=== PATIENT | female | born 1950 | race Caucasian/White ===

== ENCOUNTER 2020-12-14 10:56 | Outpatient (CLI) | payer MEDICARE ==
[2020-12-14 12:48] LABS: Hemoglobin 11.5 g/dL (12.0-15.5); Mean Corpuscular HGB CONC 32.3 g/dL (32.0-36.0); Mean Corpuscular Hemoglobin 29.1 pg (27.0-33.0); Mean Corpuscular Volume 90.1 fl (81.6-98.3); Mean Platelet Volume 10.7 fl (7.4-10.4); Platelet Count 240 10x3/uL (150-450); RBC Distribution Width 13.1 % (11.5-14.5); Red Blood Cell (RBC) Count 3.95 10x6/uL (3.90-5.03); White Blood Cell (WBC) Count 9.1 10x3/uL (3.5-10.5)
[2020-12-15 02:35] LABS: SARS-CoV-2 PCR by NAA Not Detected (NotDetected)
== END 2020-12-14 10:57 | disposition home or self-care (01) ==
LOC: CSHLAB 10:56
PROVIDERS: ATTEND Podiatrist
DX: Z01.818 Encounter for other preprocedural examination (principal); Z20.822 Contact with and (suspected) exposure to COVID-19; T84.223A Displacement of internal fixation device of bones of foot and toes, initial encounter
CPT/HCPCS: 85027; 87635; 93005; 93010; U0003; U0005

== ENCOUNTER 2022-07-13 06:23 | Inpatient (IN) | payer MEDICARE ==
[2022-07-13] MEDS ORDERED: Ondansetron PF 4 MG/2 ML Vial ONE ×2 (07:24→11:05)
[2022-07-13 07:33] LABS: #Monocytes 1.4 10x3/uL (0.0-1.1); #Neutrophils 17.3 10x3/uL (1.5-8.4); %Basophils 0.1 % (0.0-2.0); %Eosinophils 0.1 % (0.0-6.0); %Lymphocytes 3.7 % (18.0-47.0); %Neutrophils 88.6 % (40.0-75.0); Hemoglobin 12.7 g/dL (12.0-15.5); Mean Corpuscular HGB CONC 36.4 g/dL (32.0-36.0); Mean Corpuscular Hemoglobin 29.7 pg (27.0-33.0); Mean Corpuscular Volume 81.7 fl (81.6-98.3); Mean Platelet Volume 9.4 fl (7.4-10.4); Platelet Count 271 10x3/uL (150-450); RBC Distribution Width 12.2 % (11.5-14.5); Red Blood Cell (RBC) Count 4.27 10x6/uL (3.90-5.03); White Blood Cell (WBC) Count 19.6 10x3/uL (3.5-10.5)
[2022-07-13 07:43] LABS: ALT (SGPT) 35 U/L (8-55); AST (SGOT) 34 U/L (5-34); Albumin 4.3 g/dL (3.4-4.8); Alkaline Phosphatase 77 U/L (40-110); Anion Gap 18 mmol/L (10-20); BUN (Urea Nitrogen) 11 mg/dL (9.8-20.1); Bilirubin, Total 0.9 mg/dL (0.2-1.2); Calc. Creatinine Clearance 0 mL/min (70-130); Calcium 9.4 mg/dL (7.8-10.44); Carbon Dioxide 25 mmol/L (23-31); Chloride 77 mmol/L (98-107); Estimated GFR 88; Globulin 2.7 g/dL (2.4-3.5); Glucose 179 mg/dL (83-110); Lipase 11 U/L (8-78); Potassium 3.5 mmol/L (3.5-5.1)
[2022-07-13 08:10] LABS: Sodium 116 mmol/L (136-145)
[2022-07-13 10:28] LABS: Bilirubin Neg (Negative); Blood, Urine 25 (Negative); Clarity Clear (Clear); Glucose, Urine (Dipstick) 100 mg/dL (Negative); Ketone, Urine 150 mg/dL (Negative); Leukocyte 25 (Negative); Nitrite Negative (Negative); Protein, Urine (Dipstick) 30 mg/dl (Neg-Trace); Specific Gravity, Urine 1.015 (1.005-1.030); Urobilinogen Normal mg/dL (Less than 2)
[2022-07-13 10:43] LABS: RBC/HPF 0-3 HPF (0-3)
[2022-07-13 10:44] LABS: Bacteria/HPF None Seen HPF (None Seen); Transitional Epithelial 0-3 HPF (None Seen)
[2022-07-13] MEDS ORDERED: Iopamidol 300 61% 100 ML VIAL FS ONE (11:30)
[2022-07-13] MEDS ORDERED: cefTRIAXone\\ROCEPHIN 2 GM VIAL ONE (12:16)
[2022-07-13] MEDS ORDERED: Sodium Chloride 0.9% 1,000 ML IV SCH (12:30)
[2022-07-13 13:03] LABS: Magnesium 1.5 mg/dL (1.6-2.6)
[2022-07-13 13:06] LABS: SARS-CoV-2 NAA Rapid Test Not Detected (NotDetected)
[2022-07-13] MEDS ORDERED: Magnesium 2 GM/50 ML(in water) 2 GM in Premix Bag 1 BAG IVPB SCH (13:15)
[2022-07-13 13:24] LABS: Anion Gap 14 mmol/L (10-20); BUN (Urea Nitrogen) 9 mg/dL (9.8-20.1); Calc. Creatinine Clearance 0 mL/min (70-130); Calcium 8.9 mg/dL (7.8-10.44); Carbon Dioxide 24 mmol/L (23-31); Chloride 83 mmol/L (98-107); Estimated GFR 93; Glucose 136 mg/dL (83-110); Phosphorus 2.2 mg/dL (2.3-4.7); Potassium 3.6 mmol/L (3.5-5.1)
[2022-07-13 13:30] LABS: Sodium 117 mmol/L (136-145)
[2022-07-13] MEDS ORDERED: methylPREDNISolone Sod Succ 40 MG VIAL IVP SCH (15:00)
[2022-07-13] MEDS ORDERED: Ondansetron HCl/PF 4 MG in Sodium Chloride 0.9% 50 ML IVPB SCH (15:30)
[2022-07-13] MEDS ORDERED: Ketorolac Tromethamine 30 MG/ML VIAL IVP SCH (15:30)
[2022-07-13 15:53] LABS: Hemoglobin 11.9 g/dL (12.0-15.5)
[2022-07-13] MEDS ORDERED: FLU VACC QS2022-23(65YR UP)/PF 240 MCG/0.7 ML SYRINGE IM ONE (16:00)
[2022-07-13] MEDS ORDERED: Ondansetron PF 4 MG/2 ML Vial IVP SCH (16:00)
[2022-07-13] MEDS: Sodium Chloride 0.9% 1,000 ML IV SCH (16:04)
[2022-07-13 16:06] LABS: Anion Gap 18 mmol/L (10-20); BUN (Urea Nitrogen) 8 mg/dL (9.8-20.1); Calc. Creatinine Clearance 92 mL/min (70-130); Calcium 8.8 mg/dL (7.8-10.44); Carbon Dioxide 21 mmol/L (23-31); Chloride 84 mmol/L (98-107); Estimated GFR 93; Glucose 126 mg/dL (83-110); Potassium 3.5 mmol/L (3.5-5.1)
[2022-07-13 16:21] LABS: Sodium 119 mmol/L (136-145)
[2022-07-13 16:56] LABS: Hemoglobin A1c 5.8 % (4.0-6.0)
[2022-07-13] MEDS: chlordiazePOXIDE/Clidinium Bromide Capsule PO SCH ×2 (17:32→22:49)
[2022-07-13] MEDS: Mometasone/Formoterol 60 PUFF AER INH SCH (18:30)
[2022-07-13] MEDS ORDERED: Potassium Chloride 20 MEQ TAB PO SCH ×2 (19:00→23:00)
[2022-07-13] MEDS ORDERED: Electrolyte Replacement Protocol 1 EACH FS SCH (19:15)
[2022-07-13] MEDS ORDERED: Promethazine HCl 12.5 MG in Sodium Chloride 0.9% 50 ML IVPB PRN (19:37)
[2022-07-13] MEDS: Ondansetron PF 4 MG/2 ML Vial IVP PRN (19:46)
[2022-07-13 20:23] LABS: #Monocytes 0.4 10x3/uL (0.0-1.1); #Neutrophils 15.3 10x3/uL (1.5-8.4); %Basophils 0.1 % (0.0-2.0); %Eosinophils 0.1 % (0.0-6.0); %Lymphocytes 2.7 % (18.0-47.0); %Monocytes 2.3 % (0.0-10.0); %Neutrophils 94.1 % (40.0-75.0); Hemoglobin 11.7 g/dL (12.0-15.5); Mean Corpuscular HGB CONC 36.7 g/dL (32.0-36.0); Mean Corpuscular Hemoglobin 30.1 pg (27.0-33.0); Mean Platelet Volume 9.1 fl (7.4-10.4); Platelet Count 264 10x3/uL (150-450); RBC Distribution Width 12.4 % (11.5-14.5); Red Blood Cell (RBC) Count 3.89 10x6/uL (3.90-5.03); White Blood Cell (WBC) Count 16.3 10x3/uL (3.5-10.5)
[2022-07-13 20:26] LABS: Anion Gap 16 mmol/L (10-20); BUN (Urea Nitrogen) 10 mg/dL (9.8-20.1); Calc. Creatinine Clearance 92 mL/min (70-130); Calcium 8.4 mg/dL (7.8-10.44); Carbon Dioxide 23 mmol/L (23-31); Chloride 86 mmol/L (98-107); Estimated GFR 93; Glucose 153 mg/dL (83-110); Sodium 122 mmol/L (136-145)
[2022-07-13 20:38] LABS: Potassium 2.7 mmol/L (3.5-5.1)
[2022-07-13] MEDS ORDERED: Famotidine 20 MG TAB PO SCH (21:00)
[2022-07-13 21:59] LABS: Hemoglobin 11.9 g/dL (12.0-15.5); Mean Corpuscular Hemoglobin 30.2 pg (27.0-33.0); Mean Corpuscular Volume 81.7 fl (81.6-98.3); Mean Platelet Volume 9.1 fl (7.4-10.4); Platelet Count 285 10x3/uL (150-450); RBC Distribution Width 12.4 % (11.5-14.5); Red Blood Cell (RBC) Count 3.94 10x6/uL (3.90-5.03); White Blood Cell (WBC) Count 17.2 10x3/uL (3.5-10.5)
[2022-07-13] MEDS: Pantoprazole 40 MG VIAL IVP SCH (22:11)
[2022-07-13] MEDS: Potassium Chloride 20 MEQ in Premix Bag 1 BAG IVPB SCH (22:13)
[2022-07-13] MEDS: Doxycycline 100 MG in Sodium Chloride 0.9% 100 ML IVPB SCH (22:47)
[2022-07-13] MEDS: buPROPion 75 MG TAB PO SCH (22:49)
[2022-07-13] MEDS: PHOS-NAK 1 PKT PACK PO SCH (22:49)
[2022-07-13] MEDS: Oxybutynin 5 MG TAB PO SCH (22:50)
[2022-07-13 23:36] LABS: Legionella Urinary Ag Negative (Negative)
[2022-07-14] MEDS ORDERED: Lorazepam 2 MG/ML VIAL SLOW IVP SCH (00:30)
[2022-07-14] MEDS ORDERED: Metoclopramide HCl 10 MG/2 ML VIAL IVP SCH (00:30)
[2022-07-14] MEDS ORDERED: diphenhydrAMINE 50 MG/ML VIAL IVP SCH (00:30)
[2022-07-14] MEDS: Piperacillin/Tazobactam 3.375 GM in Sodium Chloride 0.9% 100 ML IVPB SCH ×3 (00:46→17:02)
[2022-07-14] MEDS: PHOS-NAK 1 PKT PACK PO SCH (00:49)
[2022-07-14] MEDS: Potassium Chloride 20 MEQ in Premix Bag 1 BAG IVPB SCH ×4 (00:49→12:16)
[2022-07-14 01:07] LABS: Anion Gap 17 mmol/L (10-20); BUN (Urea Nitrogen) 12 mg/dL (9.8-20.1); Calc. Creatinine Clearance 88 mL/min (70-130); Calcium 8.5 mg/dL (7.8-10.44); Carbon Dioxide 23 mmol/L (23-31); Chloride 87 mmol/L (98-107); Estimated GFR 92; Glucose 167 mg/dL (83-110); Sodium 124 mmol/L (136-145)
[2022-07-14 01:08] LABS: Potassium 2.9 mmol/L (3.5-5.1)
[2022-07-14] MEDS: Sodium Chloride 0.9% 1,000 ML IV SCH (01:19)
[2022-07-14 04:46] LABS: ALT (SGPT) 29 U/L (8-55); AST (SGOT) 31 U/L (5-34); Albumin 3.6 g/dL (3.4-4.8); Alkaline Phosphatase 63 U/L (40-110); Anion Gap 17 mmol/L (10-20); BUN (Urea Nitrogen) 13 mg/dL (9.8-20.1); Bilirubin, Total 0.6 mg/dL (0.2-1.2); Calc. Creatinine Clearance 84 mL/min (70-130); Calcium 8.4 mg/dL (7.8-10.44); Carbon Dioxide 22 mmol/L (23-31); Chloride 90 mmol/L (98-107); Estimated GFR 91; Globulin 2.2 g/dL (2.4-3.5); Glucose 152 mg/dL (83-110); Potassium 3.5 mmol/L (3.5-5.1); Protein, Total 5.8 g/dL (5.8-8.1); Sodium 125 mmol/L (136-145)
[2022-07-14 04:51] LABS: #Monocytes 1.2 10x3/uL (0.0-1.1); #Neutrophils 16.9 10x3/uL (1.5-8.4); %Basophils 0.1 % (0.0-2.0); %Lymphocytes 3.8 % (18.0-47.0); %Monocytes 6.5 % (0.0-10.0); Hemoglobin 11.5 g/dL (12.0-15.5); Mean Corpuscular HGB CONC 36.9 g/dL (32.0-36.0); Mean Corpuscular Hemoglobin 30.3 pg (27.0-33.0); Mean Corpuscular Volume 82.3 fl (81.6-98.3); Mean Platelet Volume 9.5 fl (7.4-10.4); Platelet Count 283 10x3/uL (150-450); RBC Distribution Width 12.7 % (11.5-14.5); Red Blood Cell (RBC) Count 3.79 10x6/uL (3.90-5.03)
[2022-07-14] MEDS: Doxycycline 100 MG in Sodium Chloride 0.9% 100 ML IVPB SCH ×2 (08:08→20:51)
[2022-07-14] MEDS: Pantoprazole 40 MG VIAL IVP SCH ×2 (08:08→20:52)
[2022-07-14 08:21] LABS: Anion Gap 14 mmol/L (10-20); BUN (Urea Nitrogen) 14 mg/dL (9.8-20.1); Calc. Creatinine Clearance 87 mL/min (70-130); Calcium 8.1 mg/dL (7.8-10.44); Carbon Dioxide 22 mmol/L (23-31); Chloride 93 mmol/L (98-107); Estimated GFR 92; Glucose 122 mg/dL (83-110); Potassium 3.5 mmol/L (3.5-5.1); Sodium 125 mmol/L (136-145)
[2022-07-14] MEDS ORDERED: methylPREDNISolone Sod Succ 40 MG VIAL IVP SCH (09:00)
[2022-07-14] MEDS ORDERED: Enoxaparin Sodium 40 MG/0.4 ML SYRINGE SC SCH (09:00)
[2022-07-14] MEDS: chlordiazePOXIDE/Clidinium Bromide Capsule PO SCH (09:01)
[2022-07-14] MEDS: buPROPion 75 MG TAB PO SCH ×2 (09:01→20:54)
[2022-07-14] MEDS: Oxybutynin 5 MG TAB PO SCH ×2 (09:01→20:51)
[2022-07-14] MEDS ORDERED: Potassium Chloride 20 MEQ TAB PO SCH (10:00)
[2022-07-14] MEDS: Mometasone/Formoterol 60 PUFF AER INH SCH ×2 (11:15→21:40)
[2022-07-14] MEDS ORDERED: cefTRIAXone\\ROCEPHIN 1 GM in Sodium Chloride 0.9% 100 ML IVPB SCH (12:00)
[2022-07-14] MEDS ORDERED: Acetaminophen 325 MG TAB PO PRN (16:09)
[2022-07-14 19:04] LABS: Hemoglobin 10.9 g/dL (12.0-15.5)
[2022-07-14 19:16] LABS: Anion Gap 13 mmol/L (10-20); BUN (Urea Nitrogen) 12 mg/dL (9.8-20.1); Calc. Creatinine Clearance 86 mL/min (70-130); Calcium 8.4 mg/dL (7.8-10.44); Carbon Dioxide 23 mmol/L (23-31); Chloride 92 mmol/L (98-107); Estimated GFR 92; Glucose 164 mg/dL (83-110); Potassium 3.9 mmol/L (3.5-5.1); Sodium 124 mmol/L (136-145)
[2022-07-15] MEDS: Piperacillin/Tazobactam 3.375 GM in Sodium Chloride 0.9% 100 ML IVPB SCH ×3 (01:13→19:21)
[2022-07-15 05:03] LABS: Anion Gap 12 mmol/L (10-20); BUN (Urea Nitrogen) 9 mg/dL (9.8-20.1); Calc. Creatinine Clearance 98 mL/min (70-130); Carbon Dioxide 23 mmol/L (23-31); Chloride 92 mmol/L (98-107); Sodium 123 mmol/L (136-145)
[2022-07-15 05:04] LABS: Calcium 8.4 mg/dL (7.8-10.44); Estimated GFR 95; Glucose 117 mg/dL (83-110); Magnesium 1.7 mg/dL (1.6-2.6)
[2022-07-15] MEDS ORDERED: Magnesium 2 GM/50 ML(in water) 2 GM in Premix Bag 1 BAG IVPB SCH (05:30)
[2022-07-15] MEDS: Mometasone/Formoterol 60 PUFF AER INH SCH ×2 (07:44→19:50)
[2022-07-15] MEDS ORDERED: Guaifenesin DM 100-10/5 ML UDCUP PO PRN (08:02)
[2022-07-15] MEDS: Doxycycline 100 MG in Sodium Chloride 0.9% 100 ML IVPB SCH ×2 (09:17→21:33)
[2022-07-15] MEDS: Sodium Chloride 0.9% 1,000 ML IV SCH ×2 (09:19→21:34)
[2022-07-15] MEDS: Oxybutynin 5 MG TAB PO SCH ×2 (09:20→21:27)
[2022-07-15] MEDS: Benzonatate 100 MG CAP PO SCH ×3 (09:20→21:27)
[2022-07-15] MEDS: buPROPion 75 MG TAB PO SCH ×2 (09:20→21:25)
[2022-07-15] MEDS: Famotidine 20 MG TAB PO SCH ×2 (09:20→21:25)
[2022-07-15] MEDS: Ondansetron PF 4 MG/2 ML Vial IVP PRN (12:56)
[2022-07-15 13:50] LABS: Anion Gap 13 mmol/L (10-20); BUN (Urea Nitrogen) 9 mg/dL (9.8-20.1); Calc. Creatinine Clearance 95 mL/min (70-130); Calcium 8.5 mg/dL (7.8-10.44); Carbon Dioxide 24 mmol/L (23-31); Chloride 92 mmol/L (98-107); Estimated GFR 94; Glucose 140 mg/dL (83-110); Potassium 3.5 mmol/L (3.5-5.1); Sodium 125 mmol/L (136-145)
[2022-07-15] MEDS: SUMAtriptan Succinate 50 MG TAB PO PRN (21:25)
[2022-07-15] MEDS: Acetaminophen/Codeine 30-300mg Tablet PO PRN (21:26)
[2022-07-16] MEDS: Piperacillin/Tazobactam 3.375 GM in Sodium Chloride 0.9% 100 ML IVPB SCH ×3 (01:33→17:51)
[2022-07-16 04:45] LABS: #Basophils 0.1 10x3/uL (0.0-0.2); #Eosinphils 0.2 10x3/uL (0.0-0.5); #Monocytes 1.5 10x3/uL (0.0-1.1); #Neutrophils 10.2 10x3/uL (1.5-8.4); %Basophils 0.6 % (0.0-2.0); %Eosinophils 1.6 % (0.0-6.0); %Lymphocytes 10.3 % (18.0-47.0); %Neutrophils 75.6 % (40.0-75.0); Hemoglobin 11.5 g/dL (12.0-15.5); Mean Corpuscular Hemoglobin 29.8 pg (27.0-33.0); Mean Corpuscular Volume 85.2 fl (81.6-98.3); Platelet Count 272 10x3/uL (150-450); RBC Distribution Width 13.5 % (11.5-14.5); Red Blood Cell (RBC) Count 3.86 10x6/uL (3.90-5.03); White Blood Cell (WBC) Count 13.5 10x3/uL (3.5-10.5)
[2022-07-16 04:58] LABS: Anion Gap 13 mmol/L (10-20); BUN (Urea Nitrogen) 6 mg/dL (9.8-20.1); Calc. Creatinine Clearance 93 mL/min (70-130); Calcium 8.8 mg/dL (7.8-10.44); Carbon Dioxide 25 mmol/L (23-31); Chloride 97 mmol/L (98-107); Estimated GFR 94; Glucose 111 mg/dL (83-110); Potassium 3.8 mmol/L (3.5-5.1); Sodium 131 mmol/L (136-145)
[2022-07-16] MEDS ORDERED: Nitroglycerin 2% Ointment 1 INCH/1 GM Packet TOP SCH (05:30)
[2022-07-16] MEDS: Simethicone Chewable 80 MG TAB PO PRN ×3 (06:00→17:51)
[2022-07-16] MEDS: Mometasone/Formoterol 60 PUFF AER INH SCH ×2 (08:04→20:10)
[2022-07-16] MEDS ORDERED: Acetaminophen/Codeine 30-300mg Tablet PO PRN (08:28)
[2022-07-16] MEDS: Oxybutynin 5 MG TAB PO SCH ×2 (08:33→20:47)
[2022-07-16] MEDS: buPROPion 75 MG TAB PO SCH ×2 (08:33→20:47)
[2022-07-16] MEDS: Famotidine 20 MG TAB PO SCH ×2 (08:34→20:48)
[2022-07-16] MEDS: Benzonatate 100 MG CAP PO SCH ×3 (08:34→20:46)
[2022-07-16] MEDS: Doxycycline 100 MG in Sodium Chloride 0.9% 100 ML IVPB SCH ×2 (08:34→20:45)
[2022-07-16] MEDS: Gabapentin 300 MG CAP PO SCH ×4 (08:46→20:49)
[2022-07-16] MEDS: Stress 600 With Zinc 1 TAB PO SCH (08:48)
[2022-07-16] MEDS ORDERED: Levothyroxine Sodium 75 MCG TAB PO SCH (09:00)
[2022-07-16] MEDS: SUMAtriptan Succinate 50 MG TAB PO PRN (20:46)
[2022-07-16] MEDS: Acetaminophen/Codeine 30-300mg Tablet PO PRN (20:47)
[2022-07-16] MEDS: Sodium Chloride 0.9% 1,000 ML IV SCH (21:26)
[2022-07-16 21:36] LABS: Mycoplasma pneumoniae IgG AB Less than 100 U/mL (0-99); Mycoplasma pneumoniae IgM AB Less than 770 U/mL (0-769)
[2022-07-17] MEDS ORDERED: Amlodipine 5 MG TAB PO SCH (00:15)
[2022-07-17] MEDS: Piperacillin/Tazobactam 3.375 GM in Sodium Chloride 0.9% 100 ML IVPB SCH ×3 (00:31→15:04)
[2022-07-17 04:57] LABS: Anion Gap 10 mmol/L (10-20); BUN (Urea Nitrogen) 13 mg/dL (9.8-20.1); Calc. Creatinine Clearance 79 mL/min (70-130); Calcium 8.7 mg/dL (7.8-10.44); Carbon Dioxide 26 mmol/L (23-31); Chloride 100 mmol/L (98-107); Estimated GFR 85; Glucose 126 mg/dL (83-110); Sodium 133 mmol/L (136-145)
[2022-07-17] MEDS: Levothyroxine Sodium 75 MCG TAB PO SCH (05:21)
[2022-07-17] MEDS ORDERED: Potassium Chloride 20 MEQ TAB PO SCH ×2 (05:30→08:00)
[2022-07-17] MEDS: Mometasone/Formoterol 60 PUFF AER INH SCH ×2 (06:57→19:00)
[2022-07-17] MEDS ORDERED: hydrALAZINE 25 MG TAB PO SCH (09:30)
[2022-07-17] MEDS: Doxycycline 100 MG in Sodium Chloride 0.9% 100 ML IVPB SCH ×2 (11:30→15:04)
[2022-07-17] MEDS: buPROPion 75 MG TAB PO SCH ×2 (11:31→23:14)
[2022-07-17] MEDS: Gabapentin 300 MG CAP PO SCH ×4 (11:31→23:12)
[2022-07-17] MEDS: Famotidine 20 MG TAB PO SCH ×2 (11:32→23:11)
[2022-07-17] MEDS: Oxybutynin 5 MG TAB PO SCH ×2 (11:32→23:14)
[2022-07-17] MEDS: Benzonatate 100 MG CAP PO SCH ×3 (11:34→23:14)
[2022-07-17] MEDS: Stress 600 With Zinc 1 TAB PO SCH (11:34)
[2022-07-17] MEDS: Simethicone Chewable 80 MG TAB PO PRN ×2 (12:10→18:08)
[2022-07-17] MEDS: hydrALAZINE 25 MG TAB PO SCH ×3 (12:47→23:13)
[2022-07-17] MEDS ORDERED: Betamethasone 0.1% Cream 15 GM TUBE TOP SCH (17:00)
[2022-07-17] MEDS: Cefdinir 300 MG CAP PO SCH (23:12)
[2022-07-18 06:10] LABS: Anion Gap 16 mmol/L (10-20); BUN (Urea Nitrogen) 10 mg/dL (9.8-20.1); Calc. Creatinine Clearance 85 mL/min (70-130); Calcium 9.2 mg/dL (7.8-10.44); Carbon Dioxide 23 mmol/L (23-31); Chloride 97 mmol/L (98-107); Estimated GFR 92; Glucose 105 mg/dL (83-110); Potassium 3.8 mmol/L (3.5-5.1); Sodium 132 mmol/L (136-145)
[2022-07-18] MEDS: Mometasone/Formoterol 60 PUFF AER INH SCH ×2 (07:15→19:12)
[2022-07-18] MEDS: Levothyroxine Sodium 75 MCG TAB PO SCH (08:05)
[2022-07-18] MEDS: Sodium Bicarbonate Tab 325 MG TAB PO SCH ×3 (10:41→21:04)
[2022-07-18] MEDS: Cefdinir 300 MG CAP PO SCH ×2 (10:41→21:01)
[2022-07-18] MEDS: Oxybutynin 5 MG TAB PO SCH ×2 (10:41→21:04)
[2022-07-18] MEDS: Famotidine 20 MG TAB PO SCH ×2 (10:42→21:04)
[2022-07-18] MEDS: Betamethasone 0.1% Cream 15 GM TUBE TOP SCH (10:42)
[2022-07-18] MEDS: Benzonatate 100 MG CAP PO SCH ×3 (10:42→21:01)
[2022-07-18] MEDS: Gabapentin 300 MG CAP PO SCH ×4 (10:42→21:02)
[2022-07-18] MEDS: Stress 600 With Zinc 1 TAB PO SCH (10:43)
[2022-07-18] MEDS: buPROPion 75 MG TAB PO SCH ×2 (10:45→21:01)
[2022-07-18] MEDS: hydrALAZINE 25 MG TAB PO SCH ×4 (10:45→21:03)
[2022-07-18] MEDS: Simethicone Chewable 80 MG TAB PO PRN ×2 (12:14→17:36)
[2022-07-19 05:23] LABS: Anion Gap 14 mmol/L (10-20); BUN (Urea Nitrogen) 11 mg/dL (9.8-20.1); Calc. Creatinine Clearance 84 mL/min (70-130); Calcium 8.9 mg/dL (7.8-10.44); Carbon Dioxide 24 mmol/L (23-31); Chloride 96 mmol/L (98-107); Estimated GFR 91; Glucose 127 mg/dL (83-110); Potassium 3.8 mmol/L (3.5-5.1); Sodium 130 mmol/L (136-145)
[2022-07-19] MEDS: Levothyroxine Sodium 75 MCG TAB PO SCH (06:44)
[2022-07-19] MEDS: Mometasone/Formoterol 60 PUFF AER INH SCH (07:30)
[2022-07-19] MEDS: Gabapentin 300 MG CAP PO SCH ×2 (10:52→12:59)
[2022-07-19] MEDS: Famotidine 20 MG TAB PO SCH (10:53)
[2022-07-19] MEDS: Oxybutynin 5 MG TAB PO SCH (10:53)
[2022-07-19] MEDS: Cefdinir 300 MG CAP PO SCH (10:53)
[2022-07-19] MEDS: Betamethasone 0.1% Cream 15 GM TUBE TOP SCH (10:53)
[2022-07-19] MEDS: Benzonatate 100 MG CAP PO SCH (10:53)
[2022-07-19] MEDS: Stress 600 With Zinc 1 TAB PO SCH (10:54)
[2022-07-19] MEDS: Sodium Bicarbonate Tab 325 MG TAB PO SCH (10:55)
[2022-07-19] MEDS: buPROPion 75 MG TAB PO SCH (11:03)
[2022-07-19] MEDS: hydrALAZINE 25 MG TAB PO SCH (11:03)
[2022-07-19 12:27] VITALS: TEMP 98.9
[2022-07-19 12:31] VITALS: BP 144/68
[2022-07-19] MEDS: Simethicone Chewable 80 MG TAB PO PRN (12:58)
[2022-07-19 14:31] LABS: Campy jejuni + coli by PCR Negative (Negative); STEC Shiga Toxin 1+2 Negative (Negative); Salmonella spp. by PCR Negative (Negative); Shigella spp + EIEC by PCR Negative (Negative)
[2022-07-19] MEDS ORDERED: Sodium Chloride 1 GM TAB PO SCH (15:00)
== END 2022-07-19 16:42 | disposition home health service (06) | DRG 177 ==
LOC: CSHERS 06:23 → CSHICU 14:41 → CSHTELE 07-14 17:49
PROVIDERS: ADMIT Internal Medicine; ATTEND Hospitalist
DX: J15.6 Pneumonia due to other Gram-negative bacteria (principal); J96.01 Acute respiratory failure with hypoxia; E87.1 Hypo-osmolality and hyponatremia; N39.0 Urinary tract infection, site not specified; J15.9 Unspecified bacterial pneumonia; I10 Essential (primary) hypertension; E03.9 Hypothyroidism, unspecified; G62.9 Polyneuropathy, unspecified; M54.9 Dorsalgia, unspecified; G89.29 Other chronic pain; F41.9 Anxiety disorder, unspecified; Z96.651 Presence of right artificial knee joint; R32 Unspecified urinary incontinence; G43.909 Migraine, unspecified, not intractable, without status migrainosus; J45.909 Unspecified asthma, uncomplicated; E87.6 Hypokalemia; Z20.822 Contact with and (suspected) exposure to COVID-19; Z79.890 Hormone replacement therapy; Z79.899 Other long term (current) drug therapy; Z90.49 Acquired absence of other specified parts of digestive tract; Z90.89 Acquired absence of other organs; Z90.710 Acquired absence of both cervix and uterus; Z82.49 Family history of ischemic heart disease and other diseases of the circulatory system; Z80.42 Family history of malignant neoplasm of prostate; Z80.8 Family history of malignant neoplasm of other organs or systems; Z88.8 Allergy status to other drugs, medicaments and biological substances; Z91.040 Latex allergy status; Z88.1 Allergy status to other antibiotic agents; Z98.890 Other specified postprocedural states
CPT/HCPCS: 36415; 71045; 74177; 80048; 80053; 81001; 82533; 83036; 83605; 83690; 83735; 83880; 83930; 83935; 84100; 84145; 84443; 84550; 85025; 85610; 86140; 87040; 87086; 87324; 87449; 87505; 87899; 93005; 93010; 93306; 94640; 94664; 94760; 96374; 96375; 96376; C9113; J0696; J1200; J1885; J2060; J2405; J2543; J2550; J2597; J2765; J2920; J3475; J3480; J3490; J7050; J7620; Q9967; U0002

== ENCOUNTER 2023-05-13 07:46 | Inpatient (IN) | payer MEDICARE ==
[2023-05-13] MEDS ORDERED: Ondansetron PF 4 MG/2 ML Vial ONE (08:20)
[2023-05-13] MEDS ORDERED: Morphine 2 MG/ML VIAL ONE (08:20)
[2023-05-13 08:53] LABS: Hematocrit 32.2 % (34.9-44.5); Hemoglobin 10.9 g/dL (12.0-15.5); Mean Corpuscular HGB CONC 33.9 g/dL (32.0-36.0); Mean Corpuscular Hemoglobin 29.2 pg (27.0-33.0); Mean Corpuscular Volume 86.3 fl (81.6-98.3); Platelet Count 255 10x3/uL (130-400); RBC Distribution Width 12.7 % (11.5-14.5); Red Blood Cell (RBC) Count 3.73 10x6/uL (3.90-5.03); White Blood Cell (WBC) Count 10.5 10x3/uL (3.5-10.5)
[2023-05-13 08:54] LABS: #Basophils 0.1 10x3/uL (0.0-0.2); #Monocytes 1.2 10x3/uL (0.0-1.1); #Neutrophils 8.6 10x3/uL (1.5-8.4); %Basophils 0.6 % (0.0-2.0); %Eosinophils 0.3 % (0.0-6.0); %Lymphocytes 6.1 % (18.0-47.0); %Monocytes 11.3 % (0.0-10.0); %Neutrophils 81.3 % (40.0-75.0); Mean Platelet Volume 10.1 fl (7.4-10.4)
[2023-05-13 09:06] LABS: Potassium 3.2 mmol/L (3.5-5.1); Sodium 135 mmol/L (136-145)
[2023-05-13 09:07] LABS: Anion Gap 18 mmol/L (10-20); BUN (Urea Nitrogen) 47 mg/dL (9.8-20.1); Calc. Creatinine Clearance 0 mL/min (70-130); Carbon Dioxide 25 mmol/L (23-31); Chloride 95 mmol/L (98-107); Estimated GFR 32
[2023-05-13 09:08] LABS: ALT (SGPT) 19 U/L (8-55); AST (SGOT) 27 U/L (5-34); Albumin 3.8 g/dL (3.4-4.8); Alkaline Phosphatase 84 U/L (40-110); Bilirubin, Total 0.3 mg/dL (0.2-1.2); Calcium 8.9 mg/dL (7.6-10.4); Glucose 176 mg/dL (83-110); Protein, Total 5.8 g/dL (5.8-8.1)
[2023-05-13] MEDS ORDERED: HYDROcodone/Acetaminophen 5/325 mg Tablet ONE ×2 (11:29→16:39)
[2023-05-13] MEDS ORDERED: diphenhydrAMINE 50 MG/ML VIAL ONE (11:29)
[2023-05-13 14:21] VITALS: BMI 28.7
[2023-05-13] MEDS ORDERED: Acetaminophen 650 MG Suppository PR PRN (14:32)
[2023-05-13] MEDS ORDERED: Ondansetron ODT 4 MG TAB PO PRN (14:32)
[2023-05-13] MEDS ORDERED: Ondansetron PF 4 MG/2 ML Vial IVP PRN (14:32)
[2023-05-13] MEDS ORDERED: Acetaminophen 325 MG TAB PO PRN (14:32)
[2023-05-13] MEDS: HYDROcodone/Acetaminophen 5/325 mg Tablet PO PRN ×2 (16:40→21:53)
[2023-05-13] MEDS ORDERED: TETANUS, DIPHTHERIA TOX,ADULT (TDVAX) 0.5 ML VIAL IM ONE (16:53)
[2023-05-13] MEDS ORDERED: Communication Order-Pharmacy FS SCH (17:00)
[2023-05-13] MEDS ORDERED: CEFAZOLIN 1 GM in Sodium Chloride 0.9% 100 ML IVPB SCH (21:00)
[2023-05-13 23:03] LABS: CKMB 2.9 ng/mL (0-6.6)
[2023-05-14] MEDS: HYDROcodone/Acetaminophen 5/325 mg Tablet PO PRN ×5 (05:30→22:17)
[2023-05-14 06:14] LABS: #Eosinphils 0.1 10x3/uL (0.0-0.5); #Monocytes 1.1 10x3/uL (0.0-1.1); #Neutrophils 3.9 10x3/uL (1.5-8.4); %Basophils 0.6 % (0.0-2.0); %Eosinophils 0.8 % (0.0-6.0); %Lymphocytes 18.6 % (18.0-47.0); %Neutrophils 61.7 % (40.0-75.0); Hematocrit 32.3 % (34.9-44.5); Hemoglobin 10.8 g/dL (12.0-15.5); Mean Corpuscular HGB CONC 33.4 g/dL (32.0-36.0); Mean Corpuscular Hemoglobin 29.1 pg (27.0-33.0); Mean Corpuscular Volume 87.1 fl (81.6-98.3); Mean Platelet Volume 9.7 fl (7.4-10.4); Platelet Count 220 10x3/uL (150-450); Red Blood Cell (RBC) Count 3.71 10x6/uL (3.90-5.03); White Blood Cell (WBC) Count 6.3 10x3/uL (3.5-10.5)
[2023-05-14 06:26] LABS: Anion Gap 16 mmol/L (10-20); BUN (Urea Nitrogen) 27 mg/dL (9.8-20.1); Calc. Creatinine Clearance 45 mL/min (70-130); Calcium 9.2 mg/dL (7.8-10.44); Carbon Dioxide 27 mmol/L (23-31); Chloride 99 mmol/L (98-107); Estimated GFR 48; Glucose 130 mg/dL (83-110); Potassium 3.6 mmol/L (3.5-5.1); Sodium 138 mmol/L (136-145)
[2023-05-14 09:31] LABS: CKMB 1.6 ng/mL (0-6.6)
[2023-05-14] MEDS: CEFAZOLIN 1 GM in Sodium Chloride 0.9% 100 ML IVPB SCH ×2 (10:57→16:59)
[2023-05-14 13:55] LABS: SARS-CoV-2 NAA Rapid Test DETECTED (NotDetected)
[2023-05-14] MEDS: Heparin 5,000 UNITS/ML VIAL SC SCH (20:31)
[2023-05-15] MEDS: CEFAZOLIN 1 GM in Sodium Chloride 0.9% 100 ML IVPB SCH ×3 (00:11→17:12)
[2023-05-15] MEDS: HYDROcodone/Acetaminophen 5/325 mg Tablet PO PRN ×5 (00:12→21:04)
[2023-05-15] MEDS ORDERED: Amlodipine 10 MG TAB PO SCH (09:00)
[2023-05-15] MEDS ORDERED: Levothyroxine Sodium 75 MCG TAB PO SCH (09:00)
[2023-05-15] MEDS: Heparin 5,000 UNITS/ML VIAL SC SCH ×2 (09:27→21:06)
[2023-05-15] MEDS: Gabapentin 300 MG CAP PO SCH ×2 (17:09→21:05)
[2023-05-15] MEDS: buPROPion 75 MG TAB PO SCH (21:04)
[2023-05-15] MEDS: Rosuvastatin 10 MG TAB PO SCH (21:05)
[2023-05-15] MEDS: CeleCOXIB 100 MG CAP PO SCH (21:05)
[2023-05-15] MEDS: Loratadine 10 MG TAB PO SCH (21:06)
[2023-05-15] MEDS: Oxybutynin 5 MG TAB PO SCH (21:06)
[2023-05-16] MEDS: CEFAZOLIN 1 GM in Sodium Chloride 0.9% 100 ML IVPB SCH ×4 (00:24→17:30)
[2023-05-16] MEDS: HYDROcodone/Acetaminophen 5/325 mg Tablet PO PRN ×5 (00:25→22:37)
[2023-05-16 04:24] LABS: Anion Gap 14 mmol/L (10-20); BUN (Urea Nitrogen) 12 mg/dL (9.8-20.1); Calc. Creatinine Clearance 67 mL/min (70-130); Calcium 8.6 mg/dL (7.8-10.44); Carbon Dioxide 25 mmol/L (23-31); Chloride 100 mmol/L (98-107); Estimated GFR 77; Glucose 86 mg/dL (83-110); Potassium 3.3 mmol/L (3.5-5.1); Sodium 136 mmol/L (136-145)
[2023-05-16] MEDS: Levothyroxine Sodium 75 MCG TAB PO SCH (05:25)
[2023-05-16] MEDS: Gabapentin 300 MG CAP PO SCH ×4 (11:02→21:51)
[2023-05-16] MEDS: Potassium Chloride 10 MEQ TAB PO SCH (11:03)
[2023-05-16] MEDS: Losartan Potassium 50 MG TAB PO SCH (11:04)
[2023-05-16] MEDS: buPROPion 75 MG TAB PO SCH ×2 (11:04→21:53)
[2023-05-16] MEDS: Amlodipine 5 MG TAB PO SCH (11:05)
[2023-05-16] MEDS: Cholecalciferol 1,000 UNITS (25 MCG) TAB PO SCH (11:05)
[2023-05-16] MEDS: Heparin 5,000 UNITS/ML VIAL SC SCH ×2 (11:06→21:51)
[2023-05-16] MEDS: Torsemide 100 MG TAB PO SCH (11:06)
[2023-05-16] MEDS: Acetaminophen/Codeine 30-300mg Tablet PO SCH (11:12)
[2023-05-16] MEDS: Oxybutynin 5 MG TAB PO SCH ×2 (11:19→21:58)
[2023-05-16] MEDS: Rosuvastatin 10 MG TAB PO SCH (21:52)
[2023-05-16] MEDS: CeleCOXIB 100 MG CAP PO SCH (21:52)
[2023-05-16] MEDS: Loratadine 10 MG TAB PO SCH (21:53)
[2023-05-17] MEDS: CEFAZOLIN 1 GM in Sodium Chloride 0.9% 100 ML IVPB SCH ×3 (01:06→18:09)
[2023-05-17] MEDS: Levothyroxine Sodium 75 MCG TAB PO SCH (05:46)
[2023-05-17] MEDS: HYDROcodone/Acetaminophen 5/325 mg Tablet PO PRN ×3 (06:07→20:05)
[2023-05-17] MEDS: Acetaminophen/Codeine 30-300mg Tablet PO SCH (08:33)
[2023-05-17] MEDS: Amlodipine 5 MG TAB PO SCH (08:36)
[2023-05-17] MEDS: Torsemide 100 MG TAB PO SCH (08:36)
[2023-05-17] MEDS: Gabapentin 300 MG CAP PO SCH ×4 (08:36→20:04)
[2023-05-17] MEDS: Losartan Potassium 50 MG TAB PO SCH (08:37)
[2023-05-17] MEDS: Cholecalciferol 1,000 UNITS (25 MCG) TAB PO SCH (08:37)
[2023-05-17] MEDS: buPROPion 75 MG TAB PO SCH ×2 (08:38→20:03)
[2023-05-17] MEDS: Oxybutynin 5 MG TAB PO SCH ×2 (08:38→20:12)
[2023-05-17] MEDS: Potassium Chloride 10 MEQ TAB PO SCH (08:38)
[2023-05-17] MEDS: Heparin 5,000 UNITS/ML VIAL SC SCH ×2 (08:38→20:03)
[2023-05-17] MEDS ORDERED: Potassium Chloride 20 MEQ TAB PO SCH (16:30)
[2023-05-17] MEDS ORDERED: CEFAZOLIN 1 GM VIAL ONE (18:01)
[2023-05-17] MEDS ORDERED: Sodium Chloride 0.9% 100 ML ONE (18:01)
[2023-05-17] MEDS: Loratadine 10 MG TAB PO SCH (20:04)
[2023-05-17] MEDS: Rosuvastatin 10 MG TAB PO SCH (20:04)
[2023-05-17] MEDS: CeleCOXIB 100 MG CAP PO SCH (20:05)
[2023-05-18] MEDS: CEFAZOLIN 1 GM in Sodium Chloride 0.9% 100 ML IVPB SCH ×3 (01:14→17:28)
[2023-05-18] MEDS: HYDROcodone/Acetaminophen 5/325 mg Tablet PO PRN ×3 (03:52→20:14)
[2023-05-18] MEDS: Levothyroxine Sodium 75 MCG TAB PO SCH (06:13)
[2023-05-18] MEDS: Acetaminophen/Codeine 30-300mg Tablet PO SCH (10:46)
[2023-05-18] MEDS: Cholecalciferol 1,000 UNITS (25 MCG) TAB PO SCH (10:48)
[2023-05-18] MEDS: Gabapentin 300 MG CAP PO SCH ×4 (10:48→20:02)
[2023-05-18] MEDS: Potassium Chloride 10 MEQ TAB PO SCH (10:49)
[2023-05-18] MEDS: Losartan Potassium 50 MG TAB PO SCH (10:49)
[2023-05-18] MEDS: buPROPion 75 MG TAB PO SCH ×2 (10:50→20:02)
[2023-05-18] MEDS: Oxybutynin 5 MG TAB PO SCH ×2 (10:50→20:06)
[2023-05-18] MEDS: Torsemide 100 MG TAB PO SCH (10:50)
[2023-05-18] MEDS: Heparin 5,000 UNITS/ML VIAL SC SCH ×2 (10:51→20:02)
[2023-05-18] MEDS: Amlodipine 5 MG TAB PO SCH (10:51)
[2023-05-18] MEDS: CeleCOXIB 100 MG CAP PO SCH (20:02)
[2023-05-18] MEDS: Rosuvastatin 10 MG TAB PO SCH (20:02)
[2023-05-18] MEDS: Loratadine 10 MG TAB PO SCH (20:02)
[2023-05-19] MEDS: CEFAZOLIN 1 GM in Sodium Chloride 0.9% 100 ML IVPB SCH ×4 (00:40→16:49)
[2023-05-19] MEDS: HYDROcodone/Acetaminophen 5/325 mg Tablet PO PRN ×4 (02:25→20:44)
[2023-05-19] MEDS: Levothyroxine Sodium 75 MCG TAB PO SCH (05:35)
[2023-05-19] MEDS: buPROPion 75 MG TAB PO SCH ×2 (10:00→20:45)
[2023-05-19] MEDS: Oxybutynin 5 MG TAB PO SCH ×2 (10:01→20:45)
[2023-05-19] MEDS: Gabapentin 300 MG CAP PO SCH ×4 (10:01→20:43)
[2023-05-19] MEDS: Amlodipine 5 MG TAB PO SCH (10:01)
[2023-05-19] MEDS: Acetaminophen/Codeine 30-300mg Tablet PO SCH (10:02)
[2023-05-19] MEDS: Losartan Potassium 50 MG TAB PO SCH (10:02)
[2023-05-19] MEDS: Cholecalciferol 1,000 UNITS (25 MCG) TAB PO SCH (10:02)
[2023-05-19] MEDS: Heparin 5,000 UNITS/ML VIAL SC SCH ×2 (10:03→20:45)
[2023-05-19] MEDS: Potassium Chloride 10 MEQ TAB PO SCH (10:03)
[2023-05-19] MEDS: Torsemide 100 MG TAB PO SCH (10:18)
[2023-05-19] MEDS: Rosuvastatin 10 MG TAB PO SCH (20:44)
[2023-05-19] MEDS: CeleCOXIB 100 MG CAP PO SCH (20:44)
[2023-05-19] MEDS: Loratadine 10 MG TAB PO SCH (20:45)
[2023-05-20] MEDS: CEFAZOLIN 1 GM in Sodium Chloride 0.9% 100 ML IVPB SCH ×3 (00:39→18:09)
[2023-05-20] MEDS: HYDROcodone/Acetaminophen 5/325 mg Tablet PO PRN ×4 (00:49→21:26)
[2023-05-20] MEDS: Levothyroxine Sodium 75 MCG TAB PO SCH (06:28)
[2023-05-20] MEDS ORDERED: CEFAZOLIN 1 GM VIAL ONE ×2 (09:11→14:53)
[2023-05-20] MEDS: Oxybutynin 5 MG TAB PO SCH ×2 (09:28→20:06)
[2023-05-20] MEDS: Losartan Potassium 50 MG TAB PO SCH (09:28)
[2023-05-20] MEDS: Acetaminophen/Codeine 30-300mg Tablet PO SCH (09:29)
[2023-05-20] MEDS: Torsemide 100 MG TAB PO SCH (09:30)
[2023-05-20] MEDS: Gabapentin 300 MG CAP PO SCH ×4 (09:30→21:26)
[2023-05-20] MEDS: Cholecalciferol 1,000 UNITS (25 MCG) TAB PO SCH (09:31)
[2023-05-20] MEDS: Heparin 5,000 UNITS/ML VIAL SC SCH ×2 (09:32→20:06)
[2023-05-20] MEDS: Amlodipine 5 MG TAB PO SCH (09:34)
[2023-05-20] MEDS: Potassium Chloride 10 MEQ TAB PO SCH (11:30)
[2023-05-20] MEDS: buPROPion 75 MG TAB PO SCH ×2 (11:30→20:11)
[2023-05-20] MEDS ORDERED: EPINEPHrine 1 MG/ML AMP ONE (13:17)
[2023-05-20] MEDS ORDERED: Bupivacaine PF 0.5% 30 ML VIAL ONE (13:18)
[2023-05-20] MEDS ORDERED: CEFAZOLIN 2 GM in Sodium Chloride 0.9% 100 ML IVPB SCH (14:00)
[2023-05-20] MEDS ORDERED: Ondansetron PF 4 MG/2 ML Vial ONE (14:18)
[2023-05-20] MEDS ORDERED: PROPOFOL 20 ML ONE (14:18)
[2023-05-20] MEDS ORDERED: fentaNYL 50 mcg/mL 1 mL Vial ONE ×4 (14:18→16:20)
[2023-05-20] MEDS ORDERED: Dexamethasone 4 mg/ml Vial ONE (14:18)
[2023-05-20] MEDS ORDERED: Ketorolac Tromethamine 30 MG/ML VIAL ONE (14:19)
[2023-05-20] MEDS: CeleCOXIB 100 MG CAP PO SCH (20:05)
[2023-05-20] MEDS: Rosuvastatin 10 MG TAB PO SCH (20:05)
[2023-05-20] MEDS: Loratadine 10 MG TAB PO SCH (20:05)
[2023-05-21] MEDS: CEFAZOLIN 1 GM in Sodium Chloride 0.9% 100 ML IVPB SCH ×3 (00:16→16:59)
[2023-05-21 05:14] LABS: #Basophils 0.2 10x3/uL (0.0-0.2); #Monocytes 1.2 10x3/uL (0.0-1.1); %Basophils 0.8 % (0.0-2.0); %Lymphocytes 6.1 % (18.0-47.0); %Monocytes 5.9 % (0.0-10.0); %Neutrophils 82.4 % (40.0-75.0); Hemoglobin 10.8 g/dL (12.0-15.5); Mean Corpuscular HGB CONC 33.8 g/dL (32.0-36.0); Mean Platelet Volume 9.9 fl (7.4-10.4); Platelet Count 419 10x3/uL (150-450); RBC Distribution Width 12.8 % (11.5-14.5); Red Blood Cell (RBC) Count 3.72 10x6/uL (3.90-5.03); White Blood Cell (WBC) Count 20.6 10x3/uL (3.5-10.5)
[2023-05-21] MEDS: Levothyroxine Sodium 75 MCG TAB PO SCH (05:28)
[2023-05-21] MEDS: HYDROcodone/Acetaminophen 5/325 mg Tablet PO PRN ×5 (05:28→23:54)
[2023-05-21 05:31] LABS: Anion Gap 16 mmol/L (10-20); BUN (Urea Nitrogen) 31 mg/dL (9.8-20.1); Calc. Creatinine Clearance 43 mL/min (70-130); Calcium 9.3 mg/dL (7.8-10.44); Carbon Dioxide 26 mmol/L (23-31); Chloride 95 mmol/L (98-107); Estimated GFR 45; Glucose 140 mg/dL (83-110); Potassium 4.2 mmol/L (3.5-5.1); Sodium 133 mmol/L (136-145)
[2023-05-21] MEDS ORDERED: CEFAZOLIN 1 GM VIAL ONE (08:53)
[2023-05-21] MEDS: Heparin 5,000 UNITS/ML VIAL SC SCH ×2 (09:21→21:29)
[2023-05-21] MEDS: Acetaminophen/Codeine 30-300mg Tablet PO SCH (09:24)
[2023-05-21] MEDS: Gabapentin 300 MG CAP PO SCH ×4 (09:25→21:28)
[2023-05-21] MEDS: buPROPion 75 MG TAB PO SCH ×2 (09:26→21:28)
[2023-05-21] MEDS: Oxybutynin 5 MG TAB PO SCH ×2 (09:26→21:28)
[2023-05-21] MEDS: Amlodipine 5 MG TAB PO SCH (09:26)
[2023-05-21] MEDS: Cholecalciferol 1,000 UNITS (25 MCG) TAB PO SCH (09:27)
[2023-05-21] MEDS: Potassium Chloride 10 MEQ TAB PO SCH (09:27)
[2023-05-21] MEDS: Losartan Potassium 50 MG TAB PO SCH (09:27)
[2023-05-21] MEDS: Torsemide 100 MG TAB PO SCH (09:36)
[2023-05-21] MEDS ORDERED: Morphine 4 MG/ML VIAL SLOW IVP PRN (09:57)
[2023-05-21] MEDS: CeleCOXIB 100 MG CAP PO SCH (21:27)
[2023-05-21] MEDS: Loratadine 10 MG TAB PO SCH (21:27)
[2023-05-21] MEDS: Rosuvastatin 10 MG TAB PO SCH (21:28)
[2023-05-22] MEDS: CEFAZOLIN 1 GM in Sodium Chloride 0.9% 100 ML IVPB SCH ×3 (01:02→17:28)
[2023-05-22] MEDS: Levothyroxine Sodium 75 MCG TAB PO SCH (04:50)
[2023-05-22] MEDS: HYDROcodone/Acetaminophen 5/325 mg Tablet PO PRN ×3 (04:50→16:08)
[2023-05-22] MEDS: Heparin 5,000 UNITS/ML VIAL SC SCH (08:20)
[2023-05-22] MEDS: Gabapentin 300 MG CAP PO SCH ×3 (08:24→17:30)
[2023-05-22] MEDS: Amlodipine 5 MG TAB PO SCH (08:24)
[2023-05-22] MEDS: buPROPion 75 MG TAB PO SCH (08:24)
[2023-05-22] MEDS: Cholecalciferol 1,000 UNITS (25 MCG) TAB PO SCH (08:24)
[2023-05-22] MEDS: Acetaminophen/Codeine 30-300mg Tablet PO SCH (08:25)
[2023-05-22] MEDS: Cyclobenzaprine 10 MG TAB PO PRN ×2 (08:25→14:30)
[2023-05-22] MEDS: Potassium Chloride 10 MEQ TAB PO SCH (08:26)
[2023-05-22] MEDS: Losartan Potassium 50 MG TAB PO SCH (08:26)
[2023-05-22] MEDS: Oxybutynin 5 MG TAB PO SCH (08:27)
[2023-05-22] MEDS: Torsemide 100 MG TAB PO SCH (08:41)
[2023-05-22 12:29] VITALS: TEMP 97.7
[2023-05-22 18:02] VITALS: BP 115/50
== END 2023-05-22 17:48 | disposition swing bed (61) | DRG 492 ==
LOC: CSHERS 07:46 → CSHERHOLD 12:59 → CSHTELE 19:03
PROVIDERS: ADMIT Internal Medicine; ATTEND Hospitalist
PROC: 8E0ZXY6 Isolation (ICD-10-PCS; 2023-05-14)
PROC: 0QSK04Z Reposition Left Fibula with Internal Fixation Device, Open Approach (ICD-10-PCS; principal; 2023-05-20)
PROC: 0QSH04Z Reposition Left Tibia with Internal Fixation Device, Open Approach (ICD-10-PCS; 2023-05-20)
DX: S82.842A Displaced bimalleolar fracture of left lower leg, initial encounter for closed fracture (principal); J12.82 Pneumonia due to coronavirus disease 2019; U07.1 COVID-19; L03.116 Cellulitis of left lower limb; N17.9 Acute kidney failure, unspecified; W18.30XA Fall on same level, unspecified, initial encounter; E87.6 Hypokalemia; I10 Essential (primary) hypertension; G43.909 Migraine, unspecified, not intractable, without status migrainosus; E03.9 Hypothyroidism, unspecified; Z96.651 Presence of right artificial knee joint; F41.9 Anxiety disorder, unspecified; F32.A Depression, unspecified; E86.0 Dehydration; N32.81 Overactive bladder; K21.9 Gastro-esophageal reflux disease without esophagitis; R77.8 Other specified abnormalities of plasma proteins; Z79.899 Other long term (current) drug therapy; Z79.890 Hormone replacement therapy; Y92.009 Unspecified place in unspecified non-institutional (private) residence as the place of occurrence of the external cause; Z91.040 Latex allergy status; Z88.1 Allergy status to other antibiotic agents; Z88.2 Allergy status to sulfonamides; Z88.8 Allergy status to other drugs, medicaments and biological substances; Z90.49 Acquired absence of other specified parts of digestive tract; Z90.710 Acquired absence of both cervix and uterus; Z90.89 Acquired absence of other organs
CPT/HCPCS: 36415; 70450; 71045; 80048; 80053; 82553; 84484; 85025; 93005; 96374; 96375; C1713; J0171; J0690; J1100; J1200; J1644; J1885; J2272; J2405; J2704; J3010; J3490; S0020

== ENCOUNTER 2023-05-24 12:35 | Inpatient (IN) | payer MEDICARE ==
[2023-05-24 15:31] VITALS: BMI 24.9
[2023-05-24] MEDS ORDERED: Acetaminophen 325 MG TAB PO PRN (17:49)
[2023-05-24] MEDS ORDERED: Acetaminophen 650 MG Suppository PR PRN (17:49)
[2023-05-24] MEDS ORDERED: Ondansetron PF 4 MG/2 ML Vial IVP PRN (17:49)
[2023-05-24] MEDS ORDERED: Ondansetron ODT 4 MG TAB PO PRN (17:49)
[2023-05-24] MEDS ORDERED: Witch Hazel-Glycerin 1 EACH JAR TOP PRN (17:56)
[2023-05-24] MEDS ORDERED: Preparation H Ointment 28 GM TUBE TOP PRN (17:56)
[2023-05-24] MEDS: HYDROcodone/Acetaminophen 7.5/325 mg Tablet PO PRN (21:24)
[2023-05-24] MEDS: buPROPion 75 MG TAB PO SCH (21:24)
[2023-05-24] MEDS: Rosuvastatin 10 MG TAB PO SCH (21:24)
[2023-05-24] MEDS: Gabapentin 300 MG CAP PO SCH (21:25)
[2023-05-24] MEDS: Cyclobenzaprine 10 MG TAB PO PRN (21:25)
[2023-05-24] MEDS: Oxybutynin 5 MG TAB PO SCH (21:26)
[2023-05-25 05:03] LABS: Anion Gap 17 mmol/L (10-20); BUN (Urea Nitrogen) 40 mg/dL (9.8-20.1); Calc. Creatinine Clearance 40 mL/min (70-130); Calcium 9.8 mg/dL (7.8-10.44); Carbon Dioxide 27 mmol/L (23-31); Chloride 93 mmol/L (98-107); Estimated GFR 44; Glucose 124 mg/dL (83-110); Potassium 3.4 mmol/L (3.5-5.1); Sodium 134 mmol/L (136-145)
[2023-05-25 05:09] LABS: Hemoglobin 11.1 g/dL (12.0-15.5); Mean Corpuscular HGB CONC 33.6 g/dL (32.0-36.0); Mean Corpuscular Hemoglobin 29.3 pg (27.0-33.0); Mean Corpuscular Volume 87.1 fl (81.6-98.3); Mean Platelet Volume 8.8 fl (7.4-10.4); Platelet Count 471 10x3/uL (150-450); RBC Distribution Width 13.2 % (11.5-14.5); Red Blood Cell (RBC) Count 3.79 10x6/uL (3.90-5.03); White Blood Cell (WBC) Count 12.4 10x3/uL (3.5-10.5)
[2023-05-25] MEDS: Levothyroxine Sodium 75 MCG TAB PO SCH (05:16)
[2023-05-25] MEDS: HYDROcodone/Acetaminophen 7.5/325 mg Tablet PO PRN ×3 (05:17→21:53)
[2023-05-25 05:38] LABS: MDiff Complete? YES
[2023-05-25 06:09] LABS: Band 5 % (5-11); Eosinophils 4 % (0-10); Lymphocytes 19 % (21-51); Monocytes 9 % (0-10); Neutrophil 63 % (42-75)
[2023-05-25 06:10] LABS: RBC Morph Comment Within Normal Limits
[2023-05-25 06:11] LABS: Platelet Adequacy Comment Appears Increased
[2023-05-25] MEDS ORDERED: Sodium Chloride 0.9% 500 ML IV SCH (07:30)
[2023-05-25] MEDS: Sodium Chloride 0.9% 1,000 ML IV SCH ×2 (07:33→08:41)
[2023-05-25] MEDS: Oxybutynin 5 MG TAB PO SCH ×2 (08:42→21:55)
[2023-05-25] MEDS: Gabapentin 300 MG CAP PO SCH ×3 (08:42→21:52)
[2023-05-25] MEDS: Amlodipine 10 MG TAB PO SCH (08:42)
[2023-05-25] MEDS: Cyclobenzaprine 10 MG TAB PO PRN ×2 (08:43→21:56)
[2023-05-25] MEDS: buPROPion 75 MG TAB PO SCH ×2 (08:48→21:54)
[2023-05-25] MEDS: Proctozone-HC 30 GM TUBE TOP SCH (09:12)
[2023-05-25 16:35] LABS: Magnesium 2.1 mg/dL (1.6-2.6)
[2023-05-25] MEDS ORDERED: Potassium Bicarbonate/Cit Ac 20 MEQ TAB PO SCH (17:00)
[2023-05-25] MEDS: Rosuvastatin 10 MG TAB PO SCH (21:52)
[2023-05-26 04:34] LABS: #Basophils 0.1 10x3/uL (0.0-0.2); #Eosinphils 0.4 10x3/uL (0.0-0.5); #Monocytes 1.3 10x3/uL (0.0-1.1); %Basophils 0.8 % (0.0-2.0); %Eosinophils 2.6 % (0.0-6.0); %Monocytes 8.8 % (0.0-10.0); %Neutrophils 69.9 % (40.0-75.0); Hematocrit 30.1 % (34.9-44.5); Hemoglobin 9.9 g/dL (12.0-15.5); Mean Corpuscular HGB CONC 32.9 g/dL (32.0-36.0); Mean Corpuscular Hemoglobin 28.9 pg (27.0-33.0); Mean Corpuscular Volume 87.8 fl (81.6-98.3); Mean Platelet Volume 9.6 fl (7.4-10.4); Platelet Count 357 10x3/uL (150-450); RBC Distribution Width 13.3 % (11.5-14.5); Red Blood Cell (RBC) Count 3.43 10x6/uL (3.90-5.03); White Blood Cell (WBC) Count 14.2 10x3/uL (3.5-10.5)
[2023-05-26 04:51] LABS: Anion Gap 13 mmol/L (10-20); BUN (Urea Nitrogen) 25 mg/dL (9.8-20.1); Calc. Creatinine Clearance 66 mL/min (70-130); Calcium 9.3 mg/dL (7.8-10.44); Carbon Dioxide 26 mmol/L (23-31); Chloride 102 mmol/L (98-107); Estimated GFR 80; Glucose 131 mg/dL (83-110); Potassium 4.7 mmol/L (3.5-5.1); Sodium 136 mmol/L (136-145)
[2023-05-26] MEDS: HYDROcodone/Acetaminophen 7.5/325 mg Tablet PO PRN ×3 (04:52→23:43)
[2023-05-26] MEDS: Levothyroxine Sodium 75 MCG TAB PO SCH (05:03)
[2023-05-26 05:40] LABS: Hypochromia SLIGHT = 6-15 cells (100X) (0-5/hpf); Platelet Adequacy Comment Appears Adequate; Platelet Clumps SLIGHT
[2023-05-26] MEDS: Oxybutynin 5 MG TAB PO SCH ×2 (08:37→20:38)
[2023-05-26] MEDS: Cyclobenzaprine 10 MG TAB PO PRN (08:37)
[2023-05-26] MEDS: Gabapentin 300 MG CAP PO SCH ×3 (08:37→20:37)
[2023-05-26] MEDS: buPROPion 75 MG TAB PO SCH ×2 (08:37→20:37)
[2023-05-26] MEDS ORDERED: Amlodipine 10 MG TAB ONE (08:37)
[2023-05-26] MEDS: Amlodipine 10 MG TAB PO SCH (08:38)
[2023-05-26] MEDS: Proctozone-HC 30 GM TUBE TOP SCH (08:38)
[2023-05-26] MEDS: Rosuvastatin 10 MG TAB PO SCH (20:38)
[2023-05-27 05:32] LABS: #Basophils 0.1 10x3/uL (0.0-0.2); #Eosinphils 0.4 10x3/uL (0.0-0.5); #Monocytes 1.2 10x3/uL (0.0-1.1); #Neutrophils 7.5 10x3/uL (1.5-8.4); %Eosinophils 3.6 % (0.0-6.0); %Lymphocytes 18.1 % (18.0-47.0); %Neutrophils 65.4 % (40.0-75.0); Hematocrit 29.3 % (34.9-44.5); Hemoglobin 9.8 g/dL (12.0-15.5); Mean Corpuscular HGB CONC 33.4 g/dL (32.0-36.0); Mean Corpuscular Hemoglobin 29.5 pg (27.0-33.0); Mean Corpuscular Volume 88.3 fl (81.6-98.3); Mean Platelet Volume 8.6 fl (7.4-10.4); Platelet Count 502 10x3/uL (150-450); RBC Distribution Width 13.4 % (11.5-14.5); Red Blood Cell (RBC) Count 3.32 10x6/uL (3.90-5.03); White Blood Cell (WBC) Count 11.5 10x3/uL (3.5-10.5)
[2023-05-27 05:46] LABS: Anion Gap 14 mmol/L (10-20); BUN (Urea Nitrogen) 16 mg/dL (9.8-20.1); Calc. Creatinine Clearance 68 mL/min (70-130); Calcium 9.6 mg/dL (7.8-10.44); Carbon Dioxide 23 mmol/L (23-31); Chloride 102 mmol/L (98-107); Estimated GFR 83; Glucose 117 mg/dL (83-110); Magnesium 2.1 mg/dL (1.6-2.6); Potassium 4.2 mmol/L (3.5-5.1); Sodium 135 mmol/L (136-145)
[2023-05-27] MEDS: Levothyroxine Sodium 75 MCG TAB PO SCH (07:33)
[2023-05-27] MEDS ORDERED: Amlodipine 10 MG TAB ONE ×2 (07:35)
[2023-05-27] MEDS ORDERED: Amlodipine 5 MG TAB PO SCH (09:00)
[2023-05-27] MEDS: Proctozone-HC 30 GM TUBE TOP SCH (09:26)
[2023-05-27] MEDS: Gabapentin 300 MG CAP PO SCH ×2 (09:26→16:07)
[2023-05-27] MEDS: buPROPion 75 MG TAB PO SCH (09:26)
[2023-05-27] MEDS: HYDROcodone/Acetaminophen 7.5/325 mg Tablet PO PRN (09:32)
[2023-05-27] MEDS: Oxybutynin 5 MG TAB PO SCH (09:34)
[2023-05-27 13:14] VITALS: BP 123/66; TEMP 98.5
== END 2023-05-27 16:56 | disposition home or self-care (01) | DRG 394 ==
LOC: CSHTELE 15:28 → INTOOBSV 15:28 → OBSVTOIN 05-26 15:48
PROVIDERS: ADMIT Family Medicine; ATTEND Family Medicine
DX: K64.9 Unspecified hemorrhoids (principal); N17.9 Acute kidney failure, unspecified; E03.9 Hypothyroidism, unspecified; I10 Essential (primary) hypertension; G43.909 Migraine, unspecified, not intractable, without status migrainosus; E87.6 Hypokalemia; Z79.899 Other long term (current) drug therapy; Z91.040 Latex allergy status; Z88.2 Allergy status to sulfonamides
CPT/HCPCS: 36415; 80048; 83735; 85025; 86850; 86900; 86901; G0378; J7030; J7050

== ENCOUNTER 2024-02-21 10:41 | Emergency (ER) | payer MEDICARE ==
[2024-02-21] MEDS ORDERED: HYDROmorphone 0.5 MG/0.5 ML SYRINGE ONE (11:21)
[2024-02-21] MEDS ORDERED: Ondansetron ODT 4 MG TAB ONE (11:22)
[2024-02-21] MEDS ORDERED: Lidocaine 1% (PF) 30 ML VIAL ONE (12:18)
[2024-02-21] MEDS ORDERED: Morphine 4 MG/ML VIAL ONE (12:57)
== END 2024-02-21 14:40 | disposition home or self-care (01) ==
LOC: CSHERS 10:41
DX: S52.571A Other intraarticular fracture of lower end of right radius, initial encounter for closed fracture (principal); K44.9 Diaphragmatic hernia without obstruction or gangrene; I10 Essential (primary) hypertension; W01.0XXA Fall on same level from slipping, tripping and stumbling without subsequent striking against object, initial encounter
CPT/HCPCS: 25605; 70450; 71250; 72125; 96372; 96374; J1170; J2001; J2270; Q0162